=== PATIENT | male | born 1990 | race Caucasian/White ===

== ENCOUNTER → 2016-10-14 | Outpatient (CLI) | payer OTHER ==
[~2016-10-14] MED LIST: METHACHOLINE KIT (J7674) INH ONE
--- NOTE | 2016-10-14 10:46 | PFTRPT ---
Tech: Rasta MC RRT Age: 26 Sex: Male Race: Height: 67.00 Inches Weight: 168.00 Lbs BSA: 1.88 Diagnosis: R06.02 METHACHOLINE CHALLENGE REPORT: ORDERING PROVIDER: KOFI Worrell DATE OF SERVICE: 10/14/16 INTERPRETATION: The study was of excellent technical quality. Under protocol, methacholine was administered. At a dose of 0.25 mg (1.375 CDUs), a 24% decline in the FEV1 was noted. The PC20 of 0.11 is significant. Flow rates did return to baseline post bronchodilator administration. IMPRESSION: Positive methacholine challenge study. MTDD
== END ==
LOC: M CARPUL 09:39
PROVIDERS: ATTEND Nurse Practitioner Adult Health
DX: R06.02 Shortness of breath (principal)